=== PATIENT | female | born 1990 | race Caucasian/White ===

== ENCOUNTER 2019-09-24 19:45 | Inpatient (IN) | payer BC, OTHER ==
[~2019-09-24 19:45] MED LIST: Bupivacaine 0.25% HCL 30 ML VIAL ONE; Sodium Chloride 0.9% (PF) 10 ML VIAL ONE
[2019-09-24 23:21] VITALS: BMI 25.7
[2019-09-24] MEDS ORDERED: Acetaminophen 500 MG TAB PO PRN (23:24)
[2019-09-24] MEDS ORDERED: Butorphanol Tartrate 1 MG/ML VIAL SLOW IVP PRN (23:24)
[2019-09-24] MEDS ORDERED: hydrALAZINE 20 MG/ML VIAL SLOW IVP PRN (23:24)
[2019-09-24] MEDS ORDERED: Lidocaine 1% (PF) 30 ML VIAL SC PRN (23:24)
[2019-09-24] MEDS ORDERED: Methylergonovine 0.2 MG/ML VIAL IM PRN (23:24)
[2019-09-24] MEDS ORDERED: HYDROcodone/Acetaminophen 5/325 mg Tablet PO PRN (23:24)
[2019-09-24] MEDS ORDERED: Carboprost 250 MCG/ML AMP IM PRN (23:24)
[2019-09-24] MEDS ORDERED: Misoprostol 200 MCG TAB PR PRN (23:24)
[2019-09-24] MEDS ORDERED: Diphenoxylate HCl/Atropine Tablet PO PRN (23:24)
[2019-09-24] MEDS ORDERED: NS / Oxytocin 40 units/1000ml 1,000 ML IV PRN (23:24)
[2019-09-24] MEDS ORDERED: Ondansetron PF 4 MG/2 ML Vial IVP PRN (23:24)
[2019-09-24] MEDS ORDERED: Ibuprofen 800 MG TAB PO PRN (23:24)
[2019-09-24] MEDS ORDERED: Promethazine HCl 25 MG/ML VIAL IM PRN (23:24)
[2019-09-24] MEDS: Lactated Ringer's 1,000 ML IV SCH (23:35)
[2019-09-24 23:56] LABS: Hemoglobin 11.7 g/dL (12.0-16.0); Mean Corpuscular HGB CONC 34.8 g/dL (32.0-36.0); Mean Corpuscular Hemoglobin 30.5 pg (27.0-31.0); Mean Corpuscular Volume 87.4 fL (78.0-98.0); Mean Platelet Volume 10.8 fL (7.4-10.4); Platelet Count 171 thou/uL (130-400); RBC Distribution Width 11.9 % (11.5-14.5); Red Blood Cell (RBC) Count 3.83 mill/uL (4.20-5.40); White Blood Cell (WBC) Count 9.2 thou/uL (4.8-10.8)
[2019-09-25] MEDS: NS w/ Oxytocin 10 units 500 ML IV SCH ×2 (00:03→10:39)
[2019-09-25 00:38] LABS: HBSAg Index 0.19 S/CO (0-0.99); Hep B Surf Ag Non-Reactive S/CO (NonReactive); Syphilis Antibody Nonreactive (Nonreactive); Syphilis Antibody Index 0.08 S/CO (<1.00 Non-Reactive)
[2019-09-25] MEDS: Misoprostol 100 MCG TAB VAG SCH ×3 (05:05→05:10)
[2019-09-25] MEDS: Lactated Ringer's 1,000 ML IV SCH (06:42)
--- NOTE | 2019-09-25 07:32 | PDOC.LDHP ---
Labor and Delivery H&P Chief complaint: scheduled induction HPI: 28yo at 40w by LMP here for elective IOL. s/p 2 cytotecs overnight, + painful ctx. Current gestational age (weeks): 40 Dating criteria: last menstrual period Grav: 1 Para: 0 Current complications: none Abnormal US findings: No Past Medical History: denies Current medications: pre-keshia vitamins Previous surgical history: none Allergies/Adverse Reactions: Allergies Allergy/AdvReac Type Severity Reaction Status Date / Time No Known Allergies Allergy Verified 09/24/19 23:23 Social history: none - Physical Exam Vital signs reviewed and normal: yes General: NAD Heart: RRR Lungs: CTAB Abdomen: gravid Extremeties: no edema FHT: category 1 [place] contractions every: 10min - OB Labs Blood type: B RH: positive Antibody Screen: negative HIV: negative RPR: negative HEPSAg: negative 1 hour GCT: negative GBS: negative Urine drug screen: negative Rubella: immune - Assessment L&D Assessment: elective induction at term - Plan Plan: admit to L&D, cervical ripening, labor augmentation if indicated, informed consent obtained, anesthesia consult for pain management
[2019-09-25] MEDS ORDERED: Fentanyl 4 mcg/Bup 0.1% Cadd 100 ML ONE ×2 (08:58→15:33)
[2019-09-25] MEDS ORDERED: Lactated Ringer's 500 ML IV PRN (09:24)
[2019-09-25] MEDS ORDERED: ePHEDrine/0.9% NaCl/PF SYRINGE 50 mg/10 ml SLOW IVP PRN (09:24)
[2019-09-25] MEDS ORDERED: diphenhydrAMINE 50 MG/ML VIAL IVP PRN (09:24)
[2019-09-25] MEDS ORDERED: Naloxone HCl 0.4 mg/ml Vial IVP PRN ×2 (09:24)
[2019-09-25] MEDS ORDERED: Ondansetron PF 4 MG/2 ML Vial IVP PRN (09:24)
[2019-09-25] MEDS ORDERED: Promethazine HCl 25 MG/ML VIAL IM PRN (09:24)
[2019-09-25] MEDS ORDERED: Acetaminophen 325 MG TAB PO PRN (09:24)
[2019-09-25] MEDS ORDERED: Communication Order-Pharmacy FS SCH (09:30)
[2019-09-25] MEDS ORDERED: Fentanyl 4 mcg/Bupivacaine 0.1% Cassette 100 ML EPIDURAL SCH (09:30)
[2019-09-26] MEDS ORDERED: Fentanyl 4 mcg/Bupivacaine 0.1% Cassette 100 ML EPIDURAL SCH (02:24)
[2019-09-26] MEDS ORDERED: Bicitra 30 ML UDCUP ONE (02:39)
[2019-09-26] MEDS ORDERED: Azithromycin 500 MG VIAL ONE (02:39)
--- NOTE | 2019-09-26 02:55 | PDOC.LDPN ---
Labor & Delivery Progress Note - Subjective Subjective: comfortable - Objective Vital signs reviewed and normal: yes General: NAD Uterine fundus: non tender Dilation: 6 Effacement: 90% Station: 0 FHT: category 1 [place] contractions every: 3-4min -: Pt has been 6cm since 1700 today, with significant caput and molding and edema of the cervix consistent with obstructed labor likely from CPD. Pt has inadequate contractions but with active arrest at 6cm for 10 hr will dispo pt for primary CS. risks and benefits discussed with pt and she agrees to proceed.
[2019-09-26] MEDS ORDERED: Oxytocin 10 UNITS/ML VIAL ONE ×2 (03:07→03:39)
[2019-09-26] MEDS ORDERED: MORPHINE 5 MG/10 ML PF VIAL ONE (03:07)
[2019-09-26] MEDS ORDERED: Lidocaine 2% 10 ML INJ ONE (03:07)
[2019-09-26] MEDS ORDERED: Ondansetron PF 4 MG/2 ML Vial ONE (03:07)
[2019-09-26] MEDS ORDERED: Bicitra 30 ML UDCUP PO SCH (03:30)
[2019-09-26] MEDS ORDERED: Azithromycin 500 MG in Sodium Chloride 0.9% 250 ML 250 ML IVPB SCH (03:30)
[2019-09-26] MEDS ORDERED: CEFAZOLIN 2 GM in Premix Bag 1 BAG IVPB SCH (03:30)
[2019-09-26] MEDS ORDERED: Methylergonovine 0.2 MG/ML VIAL ONE (03:37)
[2019-09-26] MEDS ORDERED: Fentanyl 100 MCG/2 ML VIAL ONE ×2 (03:45→04:09)
[2019-09-26] MEDS ORDERED: Midazolam HCl 2 mg/2 ml Vial ONE (03:51)
[2019-09-26] MEDS ORDERED: Ketorolac Tromethamine 30 MG/ML VIAL ONE (04:05)
--- NOTE | 2019-09-26 04:09 | PDOC.OPDEL ---
OB Operative/Delivery Note Delivery Dr/Surgeon: Berna Assist: Charmaine Pre-Delivery Diagnosis: arrest of dilation (at 6cm, CPD) Procedure/Post Delivery Dx: primary low transverse CS Weeks gestation: 40 Anesthesia: epidural - Findings A Sex: female Weight: 8 lb 7 oz - 1 min: 8 - 5 min: 9 - Additional Findings/Plan Placenta delivered: spontaneous findings: low transverse hysterotomy without extension, normal uterus, normal tubes, normal ovaries Estimated blood loss: 600 Compilations/Other Findings: slight uterine atony after delivery improved with pitocin and methergine. Post delivery plan: routine recovery
[2019-09-26] MEDS ORDERED: Ketorolac Tromethamine 30 MG/ML VIAL IVP SCH (04:15)
[2019-09-26] MEDS ORDERED: Communication Order-Pharmacy FS SCH (04:15)
[2019-09-26] MEDS ORDERED: HYDROmorphone 2 MG/ML VIAL SLOW IVP PRN (04:15)
[2019-09-26] MEDS ORDERED: Promethazine HCl 25 MG/ML VIAL IM PRN (04:15)
[2019-09-26] MEDS ORDERED: Promethazine HCl 25 MG SUPP PR PRN (04:15)
[2019-09-26] MEDS ORDERED: Naloxone HCl 0.4 mg/ml Vial IVP PRN ×2 (04:15)
[2019-09-26] MEDS ORDERED: Ondansetron PF 4 MG/2 ML Vial IVP PRN ×2 (04:15→09:22)
[2019-09-26] MEDS ORDERED: L&D-Morphine 4 MG/ML VIAL SLOW IVP PRN (04:15)
[2019-09-26] MEDS ORDERED: diphenhydrAMINE 50 MG/ML VIAL IVP PRN (04:15)
[2019-09-26] MEDS ORDERED: Ondansetron HCl/PF 4 MG/2 ML Vial IVP PRN (04:15)
[2019-09-26] MEDS ORDERED: Meperidine HCl/PF 25 MG/ML VIAL SLOW IVP PRN (04:15)
[2019-09-26] MEDS ORDERED: Naloxone HCl 0.4 mg/ml Vial IV PRN (04:15)
[2019-09-26] MEDS ORDERED: Meperidine HCl/PF 25 MG/ML VIAL ONE (05:32)
[2019-09-26] MEDS ORDERED: NS / Oxytocin 40 units/1000ml 1,000 ML ONE (07:33)
[2019-09-26] MEDS ORDERED: Lidocaine 1% (PF) 30 ML VIAL ONE (07:33)
[2019-09-26] MEDS ORDERED: diphenhydrAMINE 25 MG CAP PO PRN (09:22)
[2019-09-26] MEDS ORDERED: Acetaminophen 325 MG TAB PO PRN (09:22)
[2019-09-26] MEDS ORDERED: Bisacodyl 10 MG SUPP PR PRN (09:22)
[2019-09-26] MEDS ORDERED: Lanolin Ointment 7 GM TUBE TOP PRN (09:22)
[2019-09-26] MEDS ORDERED: Adacel (T-DAP) 0.5 ML SYRINGE IM ONE (09:22)
[2019-09-26] MEDS ORDERED: hydrALAZINE 20 MG/ML VIAL SLOW IVP PRN (09:22)
[2019-09-26] MEDS ORDERED: Ferrous Sulfate 325 MG TAB PO SCH (09:30)
[2019-09-26] MEDS ORDERED: Prenatal Vitamin 1 TAB PO SCH (09:30)
[2019-09-26] MEDS ORDERED: Docusate Calcium (SURFAK) 240 MG CAP PO SCH (09:30)
[2019-09-26] MEDS: Simethicone Chewable 80 MG TAB PO PRN ×2 (10:37→17:21)
[2019-09-26] MEDS: Ketorolac Tromethamine 30 MG/ML VIAL IVP PRN ×2 (10:37→17:21)
[2019-09-26] MEDS: Lactated Ringer's 1,000 ML IV SCH ×2 (10:44→13:10)
[2019-09-26] MEDS: Misoprostol 100 MCG TAB VAG SCH ×2 (13:09→13:10)
[2019-09-26] MEDS ORDERED: HYDROcodone/Acetaminophen 5/325 mg Tablet PO PRN ×2 (16:15)
[2019-09-26] MEDS: Ferrous Sulfate 325 MG TAB PO SCH (18:40)
[2019-09-27] MEDS: Docusate Calcium (SURFAK) 240 MG CAP PO SCH ×3 (02:13→21:02)
[2019-09-27 04:25] LABS: Hemoglobin 9.4 g/dL (12.0-16.0); Mean Corpuscular HGB CONC 34.4 g/dL (32.0-36.0); Mean Corpuscular Hemoglobin 30.8 pg (27.0-31.0); Mean Corpuscular Volume 89.7 fL (78.0-98.0); Platelet Count 147 thou/uL (130-400); RBC Distribution Width 12.2 % (11.5-14.5); Red Blood Cell (RBC) Count 3.06 mill/uL (4.20-5.40)
--- NOTE | 2019-09-27 07:59 | PDOC.PP ---
Post Progress Note Post Day #: 1 PO intake tolerated: yes Flatus: yes Ambulation: yes Vital Signs (12 hours) Temp Pulse Resp BP Pulse Ox 09/27/19 05:28 98.1 F 86 16 124/71 09/27/19 02:28 98.1 F 78 14 114/61 09/26/19 20:15 98.0 F 69 17 115/54 L 95 Weight Weight 141 lb - Physical Examination General: NAD Cardiovascular: RRR Respiratory: non-labored breathing Abdominal: no distention, appropriately TTP Fundus firm & at: umb Skin: CS incision dry & intact, no rash Neurological: no gross focal deficits Psychiatric: normal affect Result Diagrams: 09/27/19 03:55 Additional Labs: Post Labs Blood Type B POSITIVE 09/25/19 00:53 Hep Bs Antigen Non-Reactive S/CO (NonReactive) 09/24/19 23:43 - Assessment/Plan POD1 s/p PCS for AOAP at 6cm VSSAF Hgb 9.4 postop, acute blood loss anemia, no s/sx anemia, cont iron and pnv on DC Appropriate milestones being met, pain controlled, yessy diet, voiding Rh pos RImm Likely home tomorrow.
[2019-09-27] MEDS: Ferrous Sulfate 325 MG TAB PO SCH ×2 (08:52→17:19)
[2019-09-27] MEDS: Prenatal Vitamin 1 TAB PO SCH (08:52)
[2019-09-27] MEDS: Ibuprofen 800 MG TAB PO SCH ×2 (13:26→21:02)
[2019-09-28] MEDS: Ibuprofen 800 MG TAB PO SCH ×2 (06:30→13:27)
[2019-09-28] MEDS: Prenatal Vitamin 1 TAB PO SCH (08:47)
[2019-09-28] MEDS: Ferrous Sulfate 325 MG TAB PO SCH (08:47)
[2019-09-28] MEDS: Docusate Calcium (SURFAK) 240 MG CAP PO SCH (08:48)
--- NOTE | 2019-09-28 12:23 | PDOC.PP ---
Post Progress Note Post Day #: 2 PO intake tolerated: yes Flatus: yes Ambulation: yes Vital Signs (12 hours) Temp Pulse Resp BP Pulse Ox 09/28/19 07:20 98.3 F 76 18 128/74 100 Weight Weight 141 lb - Physical Examination General: NAD Respiratory: non-labored breathing Abdominal: no distention, appropriately TTP Fundus firm & at: umb-2 Skin: CS incision dry & intact Neurological: no gross focal deficits Psychiatric: normal affect Result Diagrams: 09/27/19 03:55 Additional Labs: Post Labs Blood Type B POSITIVE 09/25/19 00:53 Hep Bs Antigen Non-Reactive S/CO (NonReactive) 09/24/19 23:43 - Assessment/Plan POD2 s/p PCS for AOD, CPD VSSAF Met all milestones Mild acute blood loss anemia, cont Iron and PNV on DC DC home FU 2 wk
[2019-09-28 12:54] VITALS: BP 119/79; TEMP 98.1
--- NOTE | 2019-09-28 19:42 | OP ---
DATE OF PROCEDURE: 09/24/2019 PREOPERATIVE DIAGNOSES: 1. Intrauterine at 40 weeks and 4 days. 2. Arrest of dilation at 6 cm. 3. Cephalopelvic disproportion. POSTOPERATIVE DIAGNOSES: 1. Intrauterine at 40 weeks and 4 days. 2. Arrest of dilation at 6 cm. 3. Cephalopelvic disproportion. PROCEDURE PERFORMED: Primary low transverse section via Pfannenstiel skin incision. ANESTHESIA: Epidural. CUT OFF SAW GRADER SURGEON: Dr. Le, PGY-3. ESTIMATED BLOOD LOSS: 600 mL. PATHOLOGY: None. COMPLICATIONS: None. DRAINS: Gallegos catheter. FINDINGS: Female , cephalic presentation, weighing 8 pounds 7 ounces. Clear amniotic fluid. Apgars of 8 and 9. Hysterotomy without extension. Normal uterus, ovaries, and tubes bilaterally. Slight uterine atony following delivery of placenta that was improved with Pitocin and one dose of Methergine. OPERATIVE TECHNIQUE: The patient was taken to the operating room, where epidural anesthesia was found to be adequate. The patient was prepped and draped in a sterile fashion in a dorsal supine position with leftward tilt. After ensuring adequacy of anesthesia, a Pfannenstiel skin incision was made and carried down to the underlying subcutaneous tissue with a knife. The fascia was nicked in the midline with a knife and carried laterally with the [place] scissors. The superior aspect of the fascia was tented with 2 Bev's and dissected off the rectus with the Medina's. The inferior aspect of the fascia was tented with 2 Bev's and dissected off the rectus with the Medina's down to the pubic symphysis. The rectus was bluntly divided in the midline, and the peritoneum was bluntly entered into and manually retracted. The Lucian O retractor was placed, and the vesicouterine peritoneum was incised. The lower uterine segment was incised in a transverse fashion and extended with a Harkins maneuver. The infant's head was brought to the hysterotomy and delivered with fundal pressure followed by the body. The infant's cord was clamped and handed to awaiting Perry team. The placenta was allowed to spontaneously deliver. The uterus was exteriorized, cleared of all clots and debris. Atony was noted and Pitocin was infusing. Methergine was called for. The posterior cul-de-sac was left out. At that time, very prominent sacrum was noted. 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 The uterus was then placed back into the abdomen and repaired with a #1 Monocryl in a running locking fashion. A second imbricating layer was placed in a horizontal fashion. Hemostasis was noted. The pelvis was irrigated and suctioned. The Lucian O retractor was removed. The rectus muscles were examined and noted to be hemostatic. The fascia was reapproximated with a 0 PDS x2 sutures with excellent reapproximation. The subcutaneous tissue was irrigated and cauterized of any bleeders and reapproximated with a 2-0 plain gut in a running fashion. The skin was closed with 4-0 Monocryl in a subcuticular fashion. Dermabond was applied as well as a pressure dressing. The patient tolerated the procedure well. Sponge, lap, and needle counts were correct x2. The patient received Ancef 2 g and azithromycin 500 mg IV prior to the procedure. Job ID: [id number]
== END 2019-09-28 13:55 | disposition home or self-care (01) | DRG 787 ==
LOC: L&D 22:29 → 3SW 09-26 09:59
PROVIDERS: ADMIT Student in an Organized Health Care Education/Training Program; ATTEND Student in an Organized Health Care Education/Training Program
PROC: 10D00Z1 Extraction of Products of Conception, Low, Open Approach (ICD-10-PCS; principal; 2019-09-24)
PROC: 10907ZC Drainage of Amniotic Fluid, Therapeutic from Products of Conception, Via Natural or Artificial Opening (ICD-10-PCS; 2019-09-24)
PROC: 3E0P7VZ Introduction of Hormone into Female Reproductive, Via Natural or Artificial Opening (ICD-10-PCS; 2019-09-24)
PROC: 3E033VJ Introduction of Other Hormone into Peripheral Vein, Percutaneous Approach (ICD-10-PCS; 2019-09-24)
DX: O65.9 Obstructed labor due to maternal pelvic abnormality, unspecified (principal); D62 Acute posthemorrhagic anemia; O32.4XX0 Maternal care for high head at term, not applicable or unspecified; O90.81 Anemia of the puerperium; O62.2 Other uterine inertia; Z3A.40 40 weeks gestation of pregnancy; Z37.0 Single live birth
CPT/HCPCS: 36415; 51702; 85027; 86780; 86850; 86900; 86901; 87340; J0456; J0595; J0690; J1885; J2001; J2175; J2210; J2250; J2274; J2405; J2590; J3010; S0020

== ENCOUNTER 2020-10-08 06:51 | Outpatient (CLI) | payer OTHER ==
--- NOTE | 2020-10-08 07:53 | ULT ---
Complete obstetrical ultrasound INDICATION: Evaluate anatomy and cervical length TECHNIQUE: Grayscale, M-mode Doppler and Doppler images were obtained of the abdomen and pelvis to ev aluate the patient's known . COMPARISON: None. FINDINGS: Number of gestations: Single. Presentation: Transverse with the head to the maternal right. Placental location: Posterior Previa: No evidence of previa Cervical length: 4.69 cm without evidence of funneling. SAKSHI: 11.74 cm. heart rate: 143 bpm. Biparietal diameter: 5.00cm, 21 weeks and 1 day, Not calculated.. Head circumference: 17.98 cm, 20 weeks and 3 days, Not calculated. Abdominal circumference: 15.06 cm, 20 weeks and 3 days, Not calculated. Femoral length: 3.43cm, 20 weeks and 6 days, Not calculated. Estimated weight: 860 g +/- 53g (0 lbs. 13 oz. +/- 2 ounces), 35th percentile SURVEY: head: Normal appearing. Cerebellum: Normal appearing. Cisterna magna: Normal appearing. Lateral ventricles: Normal appearing. 4 chamber heart: Normal appearing.. Stomach: Normal appearing. Kidneys: Normal appearing. Cord insertion: Normal appearing. Bladder: Normal appearing. Spine: Normal appearing. Lips and nose: Normal appearing. Extremities: Normal appearing. Three-vessel CORD: Normal appearing. The average gestational age by ultrasound is 20 weeks and 5 dayswith estimated due date of February 20, 2021. The estimated dates by clinical data is 20 weeks and 5 dayswith estimated due date of February 20, 2021. IMPRESSION: 1. Single live intrauterine gestation with size and dates as above. 2. survey appeared within normal limits. 3. Cervical length was 4.69 cm.
== END 2020-10-08 06:52 | disposition home or self-care (01) ==
LOC: BICULT 06:51
PROVIDERS: ATTEND Family Medicine
DX: O09.892 Supervision of other high risk pregnancies, second trimester (principal)
CPT/HCPCS: 76805